=== PATIENT | male | born 1995 | race Caucasian/White ===

== ENCOUNTER 2017-04-25 21:58 | Emergency (ER) | payer BC, OTHER ==
[2017-04-25 22:04] VITALS: O2SAT 93
--- NOTE | 2017-04-25 22:11 | EDPHY ---
H & P Stated Complaint: r ankle pain after cought under board in hockey Time Seen by Provider: 04/25/17 22:10 HPI/ROS: HPI: This is a 22-year-old male presents with Chief Complaint: right ankle pain after caught under board in hockey Location: Right lateral ankle Quality: Injury Duration: Prior to arrival Signs and Symptoms: No bleeding, no radiation, no numbness, no weakness, no tingling, no incontinence, + decreased range of motion, + swelling, + pain Timing: Sudden Severity: 12/16 Context: Patient presents with complaints of right lateral ankle injury prior to arrival. He was skating actually was pushed into the board and is hockey skate got twisted underneath the board. He felt immediate pain in his right lateral ankle that improved when he removed it from being wedged under the board. He is unable to bear weight due to the pain. Reports swelling but no paresthesias/changes in skin color. Modifying Factors: He tried no [id number] medications and ice was not applied Comment: ROS: see HPI Constitutional: No fever, no chills, no weight loss Eyes: No blurred vision Respiratory: No shortness of breath, no cough Cardiovascular: No chest pain Gastrointestinal: No nausea, no vomiting no diarrhea Genitourinary: No dysuria Extremities: No myalgias Neurologic: No weakness, no numbness Skin: No rashes Hematologic: No bruising, no bleeding MEDICAL/SURGICAL/SOCIAL HISTORY: Medical history: Generally healthy. Does not take any regular medications. Surgical history: Denies Social history: Local [employer] student CONSTITUTIONAL: awake and alert, no obvious distress HEENT: Atraumatic and normocephalic, PERRL, EOMI. Tympanic membranes clear. Oropharynx clear, no exudate and moist pink mucosa. Airway patent. No lymphadenopathy. No meningismus. Cardiovascular: Normal S1/S2, regular rate, regular rhythm, without murmur rub or gallop. PULMONARY/CHEST: Symmetrical and nontender. Clear to auscultation bilaterally. Good air movement. No accessory muscle usage. ABDOMEN: Soft, nondistended, nontender, no rebound, no guarding, no peritoneal signs, no masses or organomegaly. No CVAT. EXTREMITIES: 2/2 DP and PT pulses, strength 5/5, RIGHT Ankle; Plantar flexion to 20, dorsiflexion to 10. Foot inversion to 35 degree. Minimal tenderness Anterior talofibular ligament. Moderate tenderness Calcaneofibular ligament, minimal tenderness posterior talofibular ligament, no tenderness posterior inferior tibiofibular ligament Achilles tendon intact. no deformities, no clubbing, no cyanosis or edema. NEUROLOGICAL: no focal neuro deficits. GCS 15. SKIN: Warm and dry, no erythema. no rash. Good capillary refill. Source: Patient Exam Limitations: No limitations - Personal History Current Tetanus/Diphtheria Vaccine: Yes Current Tetanus Diphtheria and Acellular Pertussis (TDAP): Yes - Medical/Surgical History Hx Asthma: No Hx Chronic Respiratory Disease: No Hx Diabetes: No Hx Cardiac Disease: No Hx Renal Disease: No Hx Cirrhosis: No Hx Alcoholism: No Hx HIV/AIDS: No Hx Splenectomy or Spleen Trauma: No - Social History Smoking Status: Never smoked Constitutional: Initial Vital Signs Temperature (C) 37.5 C 04/25/17 22:01 Heart Rate 92 04/25/17 22:01 Respiratory Rate 18 04/25/17 22:01 Blood Pressure 129/64 H 04/25/17 22:01 O2 Sat (%) 93 04/25/17 22:01 O2 Delivery Mode Room Air Allergies/Adverse Reactions: No Known Allergies Allergy (Unverified 04/25/17 22:01) Home Medications: Medication Instructions Recorded oxyCODONE/APAP 5/325 [Percocet 1 - 2 tab PO Q4H PRN #20 tab 04/25/17 5/325 (*)] Medical Decision Making - Diagnostics Imaging Results: Imaging Impressions Ankle X-Ray 04/25/17 22:10 Impression: 1. Obliquely oriented nondisplaced distal right fibular fracture just above the ankle joint level. 2. Mild concave irregularity of the talar subchondral bone, possible osteochondral lesion. 3. Moderate ankle joint effusion. Procedures: Procedure: Splint placement. A short-leg posterior and sandwich splint was applied by the Emergency Room claims technician. After application of the splint I returned and re-examined the patient. The splint was adequately immobilizing the joint and distal to the splint the patient's circulation and sensation was intact. ED Course/Re-evaluation: Left ankle x-ray, oral medication ordered Given Ibuprofen and [place] with adequate pain relief No signs of neurovascular compromise/tenting of skin/compartment syndrome/ extremities and joints examined above and below area of concern and are neurovascularly intact. X-ray my read shows distal fibular fracture; shown to patient and mother at bedside. Placed in posterior and sandwich Ortho Glass splint. Mother reports that they have crutches at home that the patient can use. advised RICE, pain control, nonweightbearing on right lower extremity, ortho follow up Differential Diagnosis: Differential diagnosis includes but is not limited to contusion, sprain, ligament injury, nerve injury, fibular fracture, patellar fracture, midfoot fracture - Data Points Medications Given: Discontinued Medications Hydrocodone Bitart/Acetaminophen ([place] 5/325) 1 tab PO EDNOW ONE Stop: 04/25/17 22:17 Last Admin: 04/25/17 22:19 Dose: 1 tab Ibuprofen (Motrin) 800 mg PO EDNOW ONE Stop: 04/25/17 22:17 Last Admin: 04/25/17 22:19 Dose: 800 mg Departure - Departure Disposition: Home, Routine, Self-Care Clinical Impression: Closed fracture of right distal fibula Qualifiers: Encounter type: initial encounter Fracture morphology: unspecified fracture morphology Qualified Code(s): S82.831A - Other fracture of upper and lower end of right fibula, initial encounter for closed fracture Condition: Good Instructions: Ankle Fracture (ED) Additional Instructions: Keep the splint dry and in place until seen by Orthopedics for follow-up. Nonweightbearing status on the right lower extremity. Use crutches to assist ambulation. Take ibuprofen 600-800 mg every 8 hours with food as needed for pain. Take Percocet as needed every 4 hours for severe breakthrough pain. Follow up with Orthopedics in 3-4 days at which time they will evaluate and recommend with you if conservative management versus surgery is indicated. Referrals: Klaus Saul MD [Medical Doctor] - As per Instructions Prescriptions: oxyCODONE/APAP 5/325 [Percocet 5/325 (*)] 1 - 2 tab PO Q4H PRN #20 tab PRN Reason: Pain, Severe
[2017-04-25] MEDS ORDERED: HYDROCODONE/APAP 5/325 TAB PO ONE (22:16)
[2017-04-25] MEDS ORDERED: IBUPROFEN 800 MG TAB PO ONE (22:16)
[2017-04-25] MEDS ORDERED: OXYCODONE/APAP 5/325MG PREPACK#4 BTL TAKEHOME ONE (23:28)
[2017-04-25 23:51] VITALS: BP 124/66; PULSE 70; RESP 16; TEMP 98.4
== END 2017-04-25 23:53 | disposition home or self-care (01) ==
DX: S82.831A Other fracture of upper and lower end of right fibula, initial encounter for closed fracture (principal); X58.XXXA Exposure to other specified factors, initial encounter; Y99.8 Other external cause status; Y93.22 Activity, ice hockey
CPT/HCPCS: L3925